=== PATIENT | female | born 1960 ===

== ENCOUNTER 2023-03-15 04:01 | Emergency (ER) | payer BC, SELFPAY ==
[2023-03-15 04:03] VITALS: BP 146/66
--- NOTE | 2023-03-15 04:31 | ED.GENMED ---
History of Present Illness
<KARELY Cruz - Last Filed: 03/15/23 04:55>
General
Chief Complaint: Facial Problem
Source: patient and significant other
Exam Limitations: none
Time Seen by Provider: 03/15/23 04:09
Nursing documentation reviewed up to this point in time: agreed with
Travel History
Have you had any contact with someone who has COVID-19?: No
Do you have any symptoms of coronavirus? Fever > 100 degrees, chills, cough, shortness of breath, sore throat, loss of taste or smell, muscle aches, or headache?: No
History of Present Illness
History of Present Illness:
Pt is a 62 yo female with no pertinent PMH who presents today with right sided facial pain and swelling. Pt states that she developed right sided tooth pain 7 days ago, saw a dentist 4 days ago who recommended she see an astronautical engineer and prescribed
her ibuprofen 800. Pt made an appt with the astronautical engineer for today but developed more pain 3 days ago so she took 3 doses of doxycycline that she had at her home. Yesterday her pain became so severe that she went to an emergency dentist who performed
a root canal and prescribed her amoxicillin, 2 doses already taken. Pt has also been taking ibuprofen 800mg and tylenol 500mg regularly for pain. Swelling and pain have not resolved since the root canal yesterday morning. Pt has swelling and
tenderness of right cheek, states there is some numbness of her cheek. Denies difficulty eating, drinking, speaking, or swallowing. Denies visual changes or ear pain. Denies fever, headache, dizziness, chest pain, SOB, neck pain.
Past History
<KARELY Cruz - Last Filed: 03/15/23 04:55>
Past History
ED Past Medical History: None
Review of Systems
<KARELY Cruz - Last Filed: 03/15/23 04:55>
Review of Systems
Allergies reviewed?: Yes
All Other Systems: ROS reviewed and negative except as documented in HPI and ROS
Phy Exam
<KARELY Cruz - Last Filed: 03/15/23 04:55>
General Physical Exam
General Presentation: well appearing and no apparent distress
General Skin: warm and dry
General Mental: alert
General Hydration: appears well hydrated
ENT Exam
ENT Exam: TM's normal, pharynx normal, neck supple, normocephalic, lymphnodes, swallowing well and other (Swelling and tenderness of right cheek, no overlying erythema)
Additional ENT: inability to move right sided facial muscles, sparing forehead
Eye Exam
Eye Exam: PERRL, EOMI and conjunctiva normal
Cardiovascular Exam
Cardiovascular Exam: regular rate/rhythm, no edema, no gallop, no murmur and normal peripheral pulses
Pulmonary Exam
Pulmonary Exam: lungs clear, no respiratory distress, no rales, no crackles, no rhonchi, no wheezing and no cough
Neurological Exam
Neurological Exam: alert, oriented x3 and speech normal
Musculoskeletal Exam
Musculoskeletal Exam: full ROM
Skin Exam
Skin Exam: normal color and warm/dry
Psychiatric Exam
Psychiatric Exam: normal mood/affect
Course
<KARELY Cruz - Last Filed: 03/15/23 04:55>
Orders/Labs/Results
Orders:
Orders
03/15/23 05:03
Ice Pack-Treatment DIRECTED
Location: right face
Morphine Sulfate 4 mg IV NOW STA
03/15/23 05:08
Clindamycin 600 mg/50 ml [Cleocin] 600 mg in 50 ml IV NOW
03/15/23 05:09
Basic Metabolic Panel Urgent
Complete Blood Count/With Diff Urgent
Lactic Acid Urgent
03/15/23 05:19
Ondansetron Injectable [Zofran] 4 mg .ROUTE .[facility]
03/15/23 05:20
Ondansetron Injectable [Zofran] 4 mg IV NOW STA
Abnormal Lab Results
03/15/23
05:09
RBC 3.87 L 10^6/uL
(4.20-5.40)
Hct 34.9 L %
(37.0-47.0)
MCH 32.0 H pg
(27.0-31.0)
Absolute Lymphs (auto) 0.6 L 10^3/uL
(1.2-3.4)
Absolute Monos (auto) 0.8 H 10^3/uL
(0.1-0.6)
Neutrophils % 82.1 H %
(42.2-75.2)
Lymphocytes % 7.0 L %
(20.5-51.1)
Monocytes % 9.7 H %
(1.7-9.3)
Chloride 113 H mmol/L
(98-107)
Carbon Dioxide 21 L mmol/L
(22-30)
Creatinine 0.5 L mg/dL
(0.6-1.0)
Glucose 137 H mg/dl
(70-99)
03/15/23 05:09
03/15/23 05:09
Vital Signs
Initial and Last Documented VS:
Initial Vital Signs
Temp Pulse Resp BP Pulse Ox
99.7 F 90 18 146/66 98
03/15/23 04:03 03/15/23 04:03 03/15/23 04:03 03/15/23 04:03 03/15/23 04:03
Last Documented Vital Signs
Temp Pulse Resp BP Pulse Ox
99.7 F 90 18 146/66 98
03/15/23 04:03 03/15/23 04:03 03/15/23 04:03 03/15/23 04:03 03/15/23 04:03
<Maryellen R. Gutierrez, DO - Last Filed: 03/15/23 06:10>
Orders/Labs/Results
Orders:
Orders
03/15/23 05:03
Ice Pack-Treatment DIRECTED
Location: right face
Morphine Sulfate 4 mg IV NOW STA
03/15/23 05:08
Clindamycin 600 mg/50 ml [Cleocin] 600 mg in 50 ml IV NOW
03/15/23 05:09
Basic Metabolic Panel Urgent
Complete Blood Count/With Diff Urgent
Lactic Acid Urgent
03/15/23 05:19
Ondansetron Injectable [Zofran] 4 mg .ROUTE .[facility]
03/15/23 05:20
Ondansetron Injectable [Zofran] 4 mg IV NOW STA
Abnormal Lab Results
03/15/23
05:09
RBC 3.87 L 10^6/uL
(4.20-5.40)
Hct 34.9 L %
(37.0-47.0)
MCH 32.0 H pg
(27.0-31.0)
Absolute Lymphs (auto) 0.6 L 10^3/uL
(1.2-3.4)
Absolute Monos (auto) 0.8 H 10^3/uL
(0.1-0.6)
Neutrophils % 82.1 H %
(42.2-75.2)
Lymphocytes % 7.0 L %
(20.5-51.1)
Monocytes % 9.7 H %
(1.7-9.3)
Chloride 113 H mmol/L
(98-107)
Carbon Dioxide 21 L mmol/L
(22-30)
Creatinine 0.5 L mg/dL
(0.6-1.0)
Glucose 137 H mg/dl
(70-99)
03/15/23 05:09
03/15/23 05:09
Vital Signs
Initial and Last Documented VS:
Initial Vital Signs
Temp Pulse Resp BP Pulse Ox
99.7 F 90 18 146/66 98
03/15/23 04:03 03/15/23 04:03 03/15/23 04:03 03/15/23 04:03 03/15/23 04:03
Last Documented Vital Signs
Temp Pulse Resp BP Pulse Ox
99.7 F 90 18 146/66 98
03/15/23 04:03 03/15/23 04:03 03/15/23 04:03 03/15/23 04:03 03/15/23 04:03
<Maryellen Gutierrez DO - Last Filed: 03/15/23 06:10>
*Pulse Oximetry
Patient hypoxic: no
*Critical Care Note
Total Time (30-74mins, 75-104mins- exclusive of procedures): Not Applicable
ED Attending Note
<KARELY Cruz - Last Filed: 03/15/23 04:55>
-
Portions of this chart may have been created with voice recognition software.� Occasional wrong word or��sound alike� substitutions may have occurred due to the inherent limitations of voice recognition software.
<Maryellen Gutierrez DO - Last Filed: 03/15/23 06:10>
ED Attending Note
Patient seen and examined by attending physician: Yes
I performed the substantive portion of visit, reviewed & personally made and approve the management plan that is documented in note by myself or MARLENI.: Yes
ED Attending Note:
This is a 62-year-old woman who has no significant past medical history other than ADD who presents with right upper molar dental pain that began 1 week ago. Evaluated by her primary dentist 4 days ago and x-rays reportedly were unremarkable, she
was prescribed ibuprofen 800 mg for pain and referred to an astronautical engineer for which she has an initial appointment this morning at 8:30 AM.
She complains of persistent right upper molar pain with onset of right facial swelling and redness over the weekend thus she was evaluated by an emergency dentist yesterday and underwent right upper molar root canal and was started on amoxicillin
500 mg 3 times daily for which she has had 2 doses thus far.
She presents to the ED this morning with complaints of increasing pain and swelling of her right face. She does admit that pain and swelling have worsened at nighttime with lying down. She has not had a fever nor chills. No neck pain, no
headache, no sore throat nor difficulty swallowing.
She has no history of diabetes nor immunocompromise.
62-year-old woman appears her stated age, awake and alert, appears mildly uncomfortable. Afebrile.
HEENT: There is mild to moderate global right facial soft tissue swelling with mild erythema. There is note of mild ecchymosis right inferior orbital region. Mild to moderate tenderness right upper molar�tooth #3. There is mild to moderate local
gingival erythema with mild local swelling along the buccal aspect of the gingiva of this tooth. There is no exudate, no bleeding. No soft tissue swelling nor swelling of the posterior pharynx. Tongue is midline, no sublingual swelling. There is
no submandibular nor cervical adenopathy. Neck is supple, nontender, no meningismus. Oral mucosa is moist.
Heart is regular rate and rhythm. No murmur no rub.
Lungs are clear to auscultation. Respirations are easy nonlabored.
Abdomen is soft and nontender.
Extremities without clubbing or cyanosis nor edema. Peripheral pulses are full and equal.
Skin is warm and dry, normal color. Good turgor.
No focal neurodeficits, gait is anderson and steady.
Patient presents with right facial pain, swelling, erythema that began 3 days ago, has worsened this evening after undergoing root canal procedure yesterday.
She is noted to have some mild ecchymosis right inferior orbital region and swelling could certainly be postoperative in nature but must also consider progressive cellulitis, progression of dental abscess/infection.
She has no airway compromise and overall nontoxic in appearance.
Will check labs including lactic acid and will give an IV dose of clindamycin.
If labs are unremarkable we will plan for changing antibiotic from amoxicillin to clindamycin.
Patient has a scheduled appointment with astronautical engineer this morning which I have encouraged her to keep.
Will continue ibuprofen and will add a short course of Percocet for as needed moderate pain.
Encouraged to elevate head of bed on several extra pillows and continue ice.
03/15/2023 05:55 AM
Patient feeling improved after IV morphine and local ice. She has been given IV dose of clindamycin.
Labs are all reassuring with normal white blood cell count, normal lactic acid. Unremarkable chemistries.
Will discharge as above.
Discharge Plan
Departure
Patient Disposition: Home (Routine Discharge)
Date of Disposition: 03/15/23
Time of Disposition: 05:51
Patient with high blood pressure during this ER visit?: No
Condition: Good
Discharge Problem:
Dental abscess, postoperative facial pain/swelling
Instructions: Tooth Abscess (DC), Dental Pain (DC)
Prescriptions:
New
clindamycin HCl 300 mg capsule
300 mg PO TID Qty: 20 0RF
oxycodone-acetaminophen [Percocet] 5-325 mg Tablet
1 tab PO Q6HPRN PRN (Reason: pain) Qty: 9 0RF
Referrals:
UNKNOWN - PT DOES,NOT KNOW [Family Provider] -
Activity Restrictions/Additional Instructions:
Keep your appointment with astronautical engineer this morning.
Your antibiotic has been changed from amoxicillin to clindamycin.
Continue ibuprofen as needed for pain, continue local ice and keeping head elevated.
A prescription for Percocet has been provided that can be taken along with ibuprofen as needed for pain.
Interventions
Interventions:
*Risk Screen - Suicide Last Done: 03/15/23 04:03
*Neglect/Abuse Screening Last Done: 03/15/23 04:03
[2023-03-15] MEDS: MORPHINE SULFATE 4 MG IV (05:15)
[2023-03-15] MEDS: ZOFRAN 4 MG IV (05:20)
[2023-03-15] MEDS: CLEOCIN 50 IV (05:22)
[2023-03-15 05:24] LABS: % Basophils 0.3 % (0-2); % Eosinophils 0.6 % (0-6); % Immature Granulocytes 0.3 % (0-0.5); % Monocytes 9.7 % (1.7-9.3); % Neutrophils 82.1 % (42.2-75.2); Absolute Eosinophils 0.1 10^3/uL (0-0.7); Absolute Lymphocytes 0.6 10^3/uL (1.2-3.4); Absolute Monocytes 0.8 10^3/uL (0.1-0.6); Absolute Neutrophils 6.5 10^3/uL (1.4-6.5); Hematocrit 34.9 % (37.0-47.0); Hemoglobin 12.4 g/dL (12.0-16.0); Mean Corp Hgb Conc. 35.5 g/dL (33.0-37.0); Mean Corpuscular Volume 90.2 fL (81.0-99.0); Mean Platelet Volume 9.8 fL (7.4-10.4); Nucleated Red Blood Cells % 0 %; Platelet Count 148 10^3/uL (130-400); Red Blood Cell Count 3.87 10^6/uL (4.20-5.40); Red Cell Dist. Width 12.2 % (11.5-14.5)
[2023-03-15 05:44] LABS: Blood Urea Nitrogen 14 mg/dl (7-17); Calcium 8.4 mg/dl (8.4-10.2); Carbon Dioxide 21 mmol/L (22-30); Chloride 113 mmol/L (98-107); Glucose 137 mg/dl (70-99); Potassium 4.1 mmol/L (3.5-5.1); Sodium 136 mmol/L (135-145); eGFR > 60.00
== END 2023-03-15 06:28 | disposition home or self-care (01) ==
LOC: EMR 04:01
PROVIDERS: EMERGENCY PHYSICIAN Emergency Medicine
DX: K04.7 Periapical abscess without sinus (principal); G89.18 Other acute postprocedural pain; R22.0 Localized swelling, mass and lump, head
CPT/HCPCS: 99284; 96365; 96375 ×2; 80048; 83605; 85025